=== PATIENT | male | born 1965 | race Two or more races ===

== ENCOUNTER 2018-07-27 05:23 | Emergency (ER) | payer BC ==
[2018-07-27 05:43] LABS: Bilirubin Small (Negative); Blood, Urine Large (Negative); Clarity Slightly Cloudy (Clear); Glucose, Urine (Dipstick) 100 mg/dL (Negative); Leukocyte Negative (Negative); Protein, Urine (Dipstick) 30 mg/dL (Neg-Trace)
[2018-07-27 05:53] LABS: Nitrite Unable to Interpret (Negative)
[2018-07-27] MEDS ORDERED: Ondansetron PF 4 MG/2 ML Vial ONE (05:53)
[2018-07-27] MEDS ORDERED: Morphine 4 MG/ML VIAL ONE ×2 (05:53→06:28)
[2018-07-27 05:54] LABS: Urobilinogen UNABLE TO INTERPRET mg/dL (0.2-1.0)
[2018-07-27 05:55] LABS: Bacteria/HPF None Seen HPF (None Seen); Crystals/HPF RARE CA OXALATE HPF (Negative); Hyaline Casts/LPF NONE SEEN LPF (0-3 Hyaline); RBC/HPF 21-50 HPF (0-3); Squamous Epithelial None Seen HPF (0-3); WBC/HPF 0-3 HPF (0-3)
[2018-07-27 06:21] LABS: ALT (SGPT) 42 U/L (8-55); AST (SGOT) 32 U/L (5-34); Albumin 4.6 g/dL (3.5-5.0); Alkaline Phosphatase 81 U/L (40-150); Anion Gap 14 mmol/L (10-20); BUN (Urea Nitrogen) 14 mg/dL (8.4-25.7); Bilirubin, Total 0.7 mg/dL (0.2-1.2); Calc. Creatinine Clearance 0 mL/min (70-130); Carbon Dioxide 23 mmol/L (22-29); Chloride 106 mmol/L (98-107); Estimated GFR-MDRD 73; Glucose 101 mg/dL (70-105); Lipase 20 U/L (8-78); Potassium 4.3 mmol/L (3.5-5.1); Protein, Total 7.6 g/dL (6.0-8.3); Sodium 139 mmol/L (136-145)
[2018-07-27 06:43] LABS: Mean Corpuscular HGB CONC 35.3 g/dL (32.0-36.0); Mean Corpuscular Hemoglobin 32.1 pg (27.0-31.0); Mean Platelet Volume 7.6 fL (7.4-10.4); Platelet Count 179 thou/uL (130-400); RBC Distribution Width 11.5 % (11.5-14.5); Red Blood Cell (RBC) Count 5.28 mill/uL (4.70-6.10)
[2018-07-27 07:00] LABS: Band 1 % (5-11); Lymphocytes 18 % (21-51); Monocytes 6 % (0-10); Neutrophil 69 % (42-75); Reactive Lymphocytes 6 % (0-10)
[2018-07-27 07:01] LABS: MDiff Complete? YES
[2018-07-27] MEDS ORDERED: Ketorolac Tromethamine 30 MG/ML VIAL ONE (07:04)
--- NOTE | 2018-07-27 08:01 | CT ---
PRELIMINARY REPORT/[facility]/EMERGENTY AFTER-HOURS PROCEDURE CT Abdomen and Pelvis Without Contrast EXAM DATE/TIME: 07/27/2018 5:49 AM CLINICAL HISTORY: 52 years old, male; Pain; Abdominal pain; Flank; Right; Patient HX: History given with no apparent li mitations. Patient reports he has been having "a slight irritation in my urethra when i pee, not a pa in" and urine frequency for this last 2 days, then had sudden onset of right flank pain tonight at 03 00, constant ever since. He denies any other urine symptoms or pain anywhere else. He denies any naus ea, vomiting, fever, or abdominal pain. He denies any other symptoms, complaints, or problems. He has never had this problem before. ; Additional info: History given with no apparent limitations. TECHNIQUE: Axial computed tomography images of the abdomen and pelvis without contrast. All CT scans at this facility use at least one of these dose optimization techniques: automated expos ure control; mA and/or kV adjustment per patient size (includes targeted exams where dose is matched to clinical indication); or iterative reconstruction. Coronal reformatted images were created and rev iewed. COMPARISON: No relevant prior studies available. FINDINGS: Lower thorax: No acute findings. ABDOMEN: Liver: Hepatic steatosis more prominent in the left lobe. Gallbladder and bile ducts: Unremarkable. Pancreas: Unremarkable. Spleen: Unremarkable. Adrenals: Unremarkable. Kidneys and ureters: 2-3 mm stone in the distal right ureter a few centimeters proximal to the UVJ wi th mild hydroureteronephrosis and perinephric/periureteral fat stranding. No other urolithiasis. Probable 1 cm cyst at the left lower pole. Otherwise unremarkable. Stomach and bowel: Unremarkable. No obstruction. Appendix: No evidence of appendicitis. PELVIS: Bladder: Unremarkable. Reproductive: Unremarkable. ABDOMEN and PELVIS: Intraperitoneal space: No free air. No significant fluid collection. Bones/joints: Partial bilateral sacroiliac joint fusion. Soft tissues: Small subcutaneous cystic lesion ventral to the lower sternum. Fat-containing left ingu inal hernia. Vasculature: Unremarkable. Lymph nodes: No enlarged lymph nodes. IMPRESSION: Distal right ureteral stone resulting in mild hydroureteronephrosis and perinephric/periureteral fat stranding. Thank you for allowing us to participate in the care of your patient. Dictated and Authenticated by: Perry Sorto MD 07/27/2018 6:52 AM Central Time ([place]) FINAL REPORT CT ABDOMEN AND PELVIS NONCONTRAST: Date: 07-27-18 Time: Performed on emergency basis at 0611 hours. History: Right flank pain. FINDINGS: I agree with the preliminary report by Dr. Sorto from [facility]. Partial obstruction at a 3 m m distal right ureteral calculus. Lack of contrast limits evaluation for other abnormalities. Fatty i nfiltration of the liver. Fat containing left inguinal hernia. Code QA POS: MARGIE
== END 2018-07-27 07:32 | disposition home or self-care (01) ==
LOC: SCSER 05:23
DX: N13.2 Hydronephrosis with renal and ureteral calculous obstruction (principal)
CPT/HCPCS: 74176; 80053; 81003; 81015; 83690; 85025; 96361; 96374; 96375; J1885; J2270; J2405